=== PATIENT | male | born 1995 ===

== ENCOUNTER 2017-12-16 16:34 | Emergency (ER) | payer MEDICAID ==
[~2017-12-16] VITALS: Ht 185.4 cm; Wt 133.4 kg
[2017-12-16] MEDS ORDERED: cefTRIAXone SOD 1,000 MG VL IM ONE (18:30)
[2017-12-16] MEDS ORDERED: ACETAMINOPHEN/CODEINE#3 (300/30mg) TAB PO ONE (19:15)
[2017-12-16 20:16] VITALS: BP 143/81
== END 2017-12-16 20:29 | disposition short-term general hospital (02) ==
LOC: ER 16:34
DX: S62.631B Displaced fracture of distal phalanx of left index finger, initial encounter for open fracture (principal); W27.8XXA Contact with other nonpowered hand tool, initial encounter; Y93.89 Activity, other specified; Y99.8 Other external cause status; Y92.89 Other specified places as the place of occurrence of the external cause
CPT/HCPCS: 73130; 96372; 99285; J0696